=== PATIENT | male | born 1965 | race Two or more races ===

== ENCOUNTER 2019-04-16 08:10 | Inpatient (IN) | payer BC ==
[2019-04-16] MEDS ORDERED: ONDANSETRON HCL INJ/PF 4 MG/2 ML SDV IV ONE ×2 (08:58→10:31)
[2019-04-16] MEDS ORDERED: NORMAL SALINE 1000 ML 1,000 ML IV ONE ×2 (08:58→09:53)
[2019-04-16 09:07] LABS: ABSOLUTE BASOPHILS # (AUTO) 0.1 10^3/uL (0.0-0.2); ABSOLUTE LYMPHOCYTES (AUTO) 1.8 10^3/uL (0.5-4.7); ABSOLUTE MONOCYTES (AUTO) 0.6 10^3/uL (0.1-1.4); ABSOLUTE NEUT (AUTO) 11.3 10^3/uL (1.7-8.2); BASOPHILS % (AUTO) 0.4 % (0-2); EOSINOPHILS % (AUTO) 0.1 % (0-6); HEMATOCRIT 48.9 % (37.9-51.0); HEMOGLOBIN 16.1 g/dL (13.5-17.0); LYMPHOCYTES % (AUTO) 13.3 % (13-45); MEAN CORPUSCULAR HGB CONC 32.9 g/dL (32.0-36.0); MEAN CORPUSCULAR VOLUME 85 fl (80-97); MONOCYTES % (AUTO) 4.1 % (3-13); PLATELET COUNT 336 10^3/uL (150-450); RED BLOOD COUNT 5.77 10^6/uL (4.35-5.55); RED CELL DISTRIBUTION WIDTH 13.6 % (11.5-14.0); SEGMENTED NEUTROPHILS % (AUTO) 82.1 % (42-78); TOTAL CELLS COUNTED % (AUTO) 100 %; WHITE BLOOD COUNT 13.7 10^3/uL (4.0-10.5)
[2019-04-16 09:10] LABS: APPEARANCE,URINE CLEAR; BILIRUBIN,URINE NEGATIVE (NEGATIVE); COLOR,URINE COLORLESS; GLUCOSE, URINE >=500 mg/dL (NEGATIVE); KETONES,URINE TRACE mg/dL (NEGATIVE); LEUKOCYTE ESTERASE,URINE NEGATIVE (NEGATIVE); NITRITE,URINE NEGATIVE (NEGATIVE); PROTEIN,URINE NEGATIVE (NEGATIVE); URINE SPECIFIC GRAVITY 1.029; UROBILINOGEN,URINE NEGATIVE mg/dL (<2.0)
--- NOTE | 2019-04-16 09:17 | ER Document Report ---
ED General - General Chief Complaint: High Blood Sugar Stated Complaint: BLOOD SUGAR PROBLEM Time Seen by Provider: 04/16/19 08:42 Mode of Arrival: Ambulatory Information source: Patient Notes: Patient presents to the emergency department with reports that he believes he is a diabetic. Patient reports that he checked his glucose with his father's glucometer and it was over 600. Patient reports family history of diabetes. Reports for the past week he has had increased thirst with a dry mouth and increased urine frequency, feeling lightheaded weak and wobbly. Patient also reports he vomited twice this morning and had diarrhea 3 times Monday. Patient denies past medical history of diabetes reports he has not been to a physician in over 5 years. Denies chest pain but reports every now and then he will feel like he has to catch his breath. TRAVEL OUTSIDE OF THE [place] IN LAST 30 DAYS: No - HPI Onset: Last week Onset/Duration: Persistent Quality of pain: No pain - Related Data Allergies/Adverse Reactions: No Known Allergies Allergy (Verified 04/16/19 08:22) Past Medical History - General Information source: Patient - Social History Smoking Status: Former Smoker Cigarette use (# per day): No Frequency of alcohol use: None Drug Abuse: None Occupation: Restaurant Lives with: Family Family History: DM Patient has suicidal ideation: No Patient has homicidal ideation: No - Medical History Medical History: Negative Renal/ Medical History: Denies: Hx Peritoneal Dialysis Past Surgical History: Reports: Hx Abdominal Surgery Review of Systems - Review of Systems Notes: Review HPI for review of systems., All other systems negative Physical Exam - Vital signs Vitals: Temp Pulse Resp BP Pulse Ox 98.8 F 123 H 18 125/92 H 96 04/16/19 08:26 04/16/19 08:26 04/16/19 08:26 04/16/19 08:26 04/16/19 08:26 - Notes Notes: PHYSICAL EXAMINATION: GENERAL: Well-appearing and in no acute distress HEAD: Atraumatic, normocephalic. EYES: Pupils equal round and reactive to light, extraocular movements intact, sclera anicteric, conjunctiva are normal. ENT: nares patent, oropharynx clear without exudates. Moist mucous membranes. NECK: Normal range of motion, supple without lymphadenopathy LUNGS: CTAB and equal. No wheezes rales or rhonchi. HEART: Regular rate and rhythm without murmurs Sinus tachycardia at 125 noted on the CM ABDOMEN: Soft, no tenderness. No guarding, no rebound EXTREMITIES: Normal range of motion, no pitting edema. No cyanosis. NEUROLOGICAL: Cranial nerves grossly intact. Normal sensory/motor exams. PSYCH: Normal mood, normal affect. SKIN: Warm, Dry, normal turgor, no rashes or lesions noted Course - Re-evaluation Re-evalutation: 04/16/19 10:31 Serum glucose 836 potassium 5.2 anion gap 17 sodium 135.3. A1C 11.1. 2 liters of fluid ordered. Insulin bolus with insulin drip ordered. Dr. Brown contacted for admission. Patient updated on plan of care and agrees. - Vital Signs Vital signs: Temp Pulse Resp BP Pulse Ox 98.2 F 123 H 20 130/88 H 95 04/16/19 15:01 04/16/19 08:26 04/16/19 16:01 04/16/19 16:01 04/16/19 16:01 - Laboratory Result Diagrams: 04/16/19 08:55 04/16/19 08:55 Laboratory results interpreted by me: 04/16/19 04/16/19 04/16/19 06:08 08:23 08:55 WBC 13.7 H RBC 5.77 H Seg Neutrophils % 82.1 H Absolute Neutrophils 11.3 H Sodium Potassium Chloride BUN Glucose POC Glucose > 550 H* Hemoglobin A1c % Calcium Alkaline Phosphatase Urine Glucose (UA) >=500 H Urine Ketones TRACE H Urine Blood SMALL H 04/16/19 04/16/19 04/16/19 08:55 08:55 10:23 WBC RBC Seg Neutrophils % Absolute Neutrophils Sodium 135.3 L Potassium 5.2 H Chloride 95 L BUN 22 H Glucose 876 H* POC Glucose > 550 H* Hemoglobin A1c % 11.8 H Calcium 10.6 H Alkaline Phosphatase 144 H Urine Glucose (UA) Urine Ketones Urine Blood - Diagnostic Test Radiology reviewed: Image reviewed, Reports reviewed - EXAM DESCRIPTION: CHEST 2 VIEWS COMPLETED DATE/TIME: 04/16/2019 9:22 am REASON FOR STUDY: cough COMPARISON: None. EXAM PARAMETERS: NUMBER OF VIEWS: two views TECHNIQUE: Digital Frontal and Lateral radiographic views of the chest acquired. RADIATION DOSE: NA LIMITATIONS: none FINDINGS: LUNGS AND PLEURA: No opacities, masses or pneumothorax. No pleural effusion. MEDIASTINUM AND HILAR STRUCTURES: No masses or contour abnormalities. HEART AND VASCULAR STRUCTURES: Heart normal size. No evidence for failure. BONES: No acute findings. HARDWARE: None in the chest. OTHER: No other significant finding. IMPRESSION: 1. NO ACUTE RADIOGRAPHIC FINDING IN THE CHEST. Discharge - Discharge Clinical Impression: New onset type 2 diabetes mellitus Condition: Stable Disposition: ADMITTED INPATIENT Admitting Provider: Johnnie (Hospitalist) Unit Admitted: [facility]
[2019-04-16 09:25] LABS: ALANINE AMINOTRANSFERASE 61 U/L (21-72); ALBUMIN 4.6 g/dL (3.5-5.0); ALKALINE PHOSPHATASE 144 U/L (38-126); ANION GAP 17 (5-19); ASPARTATE AMINO TRANSFERASE 27 U/L (17-59); BILIRUBIN,DIRECT 0.4 mg/dL (0.0-0.4); BILIRUBIN,TOTAL 0.9 mg/dL (0.2-1.3); BLOOD UREA NITROGEN 22 mg/dL (7-20); CALCIUM 10.6 mg/dL (8.4-10.2); CARBON DIOXIDE 23 mmol/L (22-30); CHLORIDE 95 mmol/L (98-107); POTASSIUM 5.2 mmol/L (3.6-5.0); SODIUM 135.3 mmol/L (137-145); TOTAL PROTEIN 7.4 g/dL (6.3-8.2)
--- NOTE | 2019-04-16 09:30 | RADIOLOGY REPORT (SQ) ---
EXAM DESCRIPTION: CHEST 2 VIEWS COMPLETED DATE/TIME: 04/16/2019 9:22 am REASON FOR STUDY: cough COMPARISON: None. EXAM PARAMETERS: NUMBER OF VIEWS: two views TECHNIQUE: Digital Frontal and Lateral radiographic views of the chest acquired. RADIATION DOSE: NA LIMITATIONS: none FINDINGS: LUNGS AND PLEURA: No opacities, masses or pneumothorax. No pleural effusion. MEDIASTINUM AND HILAR STRUCTURES: No masses or contour abnormalities. HEART AND VASCULAR STRUCTURES: Heart normal size. No evidence for failure. BONES: No acute findings. HARDWARE: None in the chest. OTHER: No other significant finding. IMPRESSION: 1. NO ACUTE RADIOGRAPHIC FINDING IN THE CHEST. TECHNICAL DOCUMENTATION: JOB ID: [id number] [employer]- All Rights Reserved Reading location - IP/workstation name: [email or web address]
[2019-04-16 09:51] LABS: GLUCOSE 876 mg/dL (75-110)
[2019-04-16] MEDS ORDERED: INSULIN REG, HUMAN 100 UNIT/ML 3 ML VIAL (PYX) IV ONE ×3 (10:04→10:12)
[2019-04-16] MEDS ORDERED: NORMAL SALINE 1000 ML 1,000 ML IV PRN (10:49)
[2019-04-16] MEDS ORDERED: ACETAMINOPHEN 325 MG TABLET PO PRN (10:49)
[2019-04-16] MEDS ORDERED: DEXTROSE 50%-WATER 25 GM/50 ML DISP.SYRIN IV PRN ×6 (10:49→18:22)
[2019-04-16] MEDS ORDERED: ONDANSETRON HCL INJ/PF 4 MG/2 ML SDV IV PRN (10:49)
[2019-04-16] MEDS ORDERED: DEXTROSE 40% GEL 15 GM TUBE PO PRN ×6 (10:49→18:22)
[2019-04-16] MEDS ORDERED: GLUCAGON,HUMAN RECOMB 1 MG INJ SUBCUT PRN (10:49)
[2019-04-16] MEDS ORDERED: GLUCAGON,HUMAN RECOMB 1 MG INJ IM PRN ×2 (10:56→18:22)
[2019-04-16] MEDS ORDERED: NORMAL SALINE 100 ML with INSULIN REGULAR, HUMAN 100 UNIT IV PRN ×2 (10:56)
--- NOTE | 2019-04-16 11:08 | PDOC H&P ---
History of Present Illness Admission Date/PCP: 04/16/19 10:40 Patient complains of: Nausea associated with poor appetite and polyuria and polydipsia. History of Present Illness: IDALIA VALERA is a 53 year old male with a history of gastroparesis reflux disease, perforated peptic ulcer status post surgery in 2009 came to the emergency room with complaints of not feeling well for the last 7 to 10 days. As per the patient he is feeling terrible and thirsty all the time the symptoms are associated with nausea, poor appetite, sweating and drinking a lot of water and urinating almost every half an hour. Denies any fevers denies any cough cold denies any chest pains denies any lightheadedness and dizziness. The emergency room blood sugar was 876 he was given 10 units of regular insulin subcu and insulin drip was initiated. Repeat blood sugar is more than 550. Patient agreed to stay in the hospital. Past Medical History GI Medical History: Reports: Gastroesophageal Reflux Disease, Peptic Ulcer Disease Social History Information Source: Patient Lives with: Family Smoking Status: Former Smoker - Advance Directive Resuscitation Status: Full Code Family History Family History: DM Parental Family History Reviewed: Yes - Father mother and sister with hypertension and diabetes mellitus Children Family History Reviewed: Yes Sibling(s) Family History Reviewed.: Yes Medication/Allergy Allergies/Adverse Reactions: No Known Allergies Allergy (Verified 04/16/19 08:22) Review of Systems Constitutional: PRESENT: fatigue, weakness. ABSENT: fever(s), headache(s) Eyes: ABSENT: visual disturbances Ears: ABSENT: hearing changes Nose, Mouth, and Throat: ABSENT: sore throat Cardiovascular: ABSENT: chest pain, orthropnea, palpitations Respiratory: ABSENT: dyspnea, hemoptysis Gastrointestinal: PRESENT: nausea, other - Poor appetite Genitourinary: PRESENT: other - Urinating almost every half an hour for the last 1week, drinking gallons of water Musculoskeletal: PRESENT: muscle weakness Neurological: ABSENT: abnormal gait, abnormal speech, confusion, dizziness, focal weakness, syncope Psychiatric: ABSENT: anxiety, depression, homidical ideation, suicidal ideation Physical Exam Vital Signs: Temp Pulse Resp BP Pulse Ox 98.8 F 123 H 26 H 145/94 H 95 04/16/19 08:26 04/16/19 08:26 04/16/19 10:02 04/16/19 10:02 04/16/19 10:02 Intake & Output 04/15/19 04/16/19 04/17/19 06:59 06:59 06:59 Intake Total 1999 Balance 1999 Weight 95.9 kg General appearance: PRESENT: no acute distress, obese Eye exam: PRESENT: PERRLA Ear exam: PRESENT: normal external ear exam Mouth exam: PRESENT: moist, tongue midline Neck exam: ABSENT: carotid bruit, JVD, lymphadenopathy, thyromegaly Respiratory exam: PRESENT: clear to auscultation rosa. ABSENT: rales, rhonchi, wheezes Cardiovascular exam: PRESENT: tachycardia GI/Abdominal exam: PRESENT: normal bowel sounds, soft. ABSENT: distended, guarding, mass, organolmegaly, rebound, tenderness Rectal exam: PRESENT: deferred Extremities exam: PRESENT: full ROM. ABSENT: calf tenderness, clubbing, pedal edema Neurological exam: PRESENT: alert, awake, oriented to person, oriented to place, oriented to time, oriented to situation, CN II-XII grossly intact. ABSENT: motor sensory deficit Psychiatric exam: PRESENT: appropriate affect, normal mood. ABSENT: homicidal ideation, suicidal ideation Results Laboratory Results: 04/16/19 08:55 04/16/19 08:55 04/16/19 04/16/19 04/16/19 08:23 08:55 08:55 WBC 13.7 H RBC 5.77 H Hgb 16.1 Hct 48.9 MCV 85 MCH 28.0 MCHC 32.9 RDW 13.6 Plt Count 336 Seg Neutrophils % 82.1 H Lymphocytes % 13.3 Monocytes % 4.1 Eosinophils % 0.1 Basophils % 0.4 Absolute Neutrophils 11.3 H Absolute Lymphocytes 1.8 Absolute Monocytes 0.6 Absolute Eosinophils 0.0 Absolute Basophils 0.1 Sodium 135.3 L Potassium 5.2 H Chloride 95 L Carbon Dioxide 23 Anion Gap 17 BUN 22 H Creatinine 0.86 Est GFR ( Amer) > 60 Est GFR (Non-Af Amer) > 60 Glucose 876 H* Calcium 10.6 H Total Bilirubin 0.9 AST 27 ALT 61 Alkaline Phosphatase 144 H Total Protein 7.4 Albumin 4.6 Urine Color COLORLESS Urine Appearance CLEAR Urine pH 6.0 Ur Specific [place] 1.029 Urine Protein NEGATIVE Urine Glucose (UA) >=500 H Urine Ketones TRACE H Urine Blood SMALL H Urine Nitrite NEGATIVE Ur Leukocyte Esterase NEGATIVE Urine WBC (Auto) 1 Urine RBC (Auto) 3 Impressions: Chest X-Ray 04/16/19 09:12 IMPRESSION: 1. NO ACUTE RADIOGRAPHIC FINDING IN THE CHEST. Assessment and Plan - Diagnosis (1) New onset type 2 diabetes mellitus Is this a current diagnosis for this admission?: Yes Plan: 04/16/2019-patient is going to be admitted to [facility]. Plan is to continue the insulin drip. To monitor the blood sugars as per the protocol. He is going to be n.p.o. GI prophylaxis DVT prophylaxis initiated. Dietary consult was requested. Hemoglobin A1c lipid panel was requested for the morning. Started on IV fluids normal saline at 150 cc/h. (2) Obesity (BMI 30.0-34.9) Is this a current diagnosis for this admission?: No Plan: 04/16/2019-patient's BMI is more than 30 diet exercise weight loss issues discussed with the patient. Dietary consult was requested. (3) Hyperkalemia Is this a current diagnosis for this admission?: Yes Plan: 04/16/2019-serum potassium is 5.2 at the time of admission started on IV fluids and insulin drip hopefully it will bring this potassium down. Hyperkalemia most likely secondary to uncontrolled diabetes mellitus. (4) Hyponatremia Is this a current diagnosis for this admission?: Yes Plan: 04/16/2019-patient serum sodium is 135.3 low normal. Hyponatremia most likely secondary to nausea and uncontrolled diabetes mellitus. He is presently in normal saline at 150 cc/h plan is to repeat the labs tomorrow. (5) HTN (hypertension) Is this a current diagnosis for this admission?: Yes Plan: 04/15/2019-patient blood pressure today is 145/94. To start on IV hydralazine 10 mg every 6 hours as needed for systolic blood pressure more than 150. Once the patient is stable we will start him on JUAN F inhibitors. - Time Time Spent with patient: 25-34 minutes Medications reviewed and adjusted accordingly: Yes Anticipated discharge: Home
[2019-04-16] MEDS ORDERED: HYDRALAZINE HCL INJ/PF 20 MG/1 ML SDV IV PRN (11:09)
[2019-04-16 11:27] LABS: CREATINE KINASE MB 1.33 ng/mL (<4.55)
[2019-04-16 11:28] LABS: TROPONIN I < 0.012 ng/mL
[2019-04-16 15:58] LABS: CREATINE KINASE MB 0.93 ng/mL (<4.55)
[2019-04-16 16:01] LABS: TROPONIN I < 0.012 ng/mL
--- NOTE | 2019-04-16 18:25 | EKG REPORT ---
SEVERITY:- BORDERLINE ECG - SINUS RHYTHM NONSPECIFIC INFERIOR ST CHANGES : Confirmed by: Augustine Rogel MD 16-Apr-2019 18:25:30
[2019-04-16] MEDS: NORMAL SALINE 1000 ML 1,000 ML IV PRN (18:44)
[2019-04-16] MEDS: INSULIN REG, HUMAN 100 UNIT/ML 3 ML VIAL (PYX) SUBCUT SCH (21:25)
[2019-04-16] MEDS: FAMOTIDINE INJ/PF 20 MG/2 ML SDV IV SCH (21:27)
[2019-04-16] MEDS ORDERED: ATORVASTATIN CALCIUM 10 MG TABLET PO SCH (22:00)
[2019-04-16] MEDS ORDERED: INSULIN GLARGINE,HUM.REC.ANLOG 1,000 UNIT/10 ML VIAL SUBCUT SCH (22:00)
[2019-04-16 23:03] LABS: CREATINE KINASE MB 0.79 ng/mL (<4.55)
[2019-04-16 23:07] LABS: TROPONIN I < 0.012 ng/mL
[2019-04-17 05:12] LABS: ABSOLUTE BASOPHILS # (AUTO) 0.1 10^3/uL (0.0-0.2); ABSOLUTE EOSINOPHILS # (AUTO) 0.2 10^3/uL (0.0-0.6); ABSOLUTE LYMPHOCYTES (AUTO) 3.7 10^3/uL (0.5-4.7); ABSOLUTE MONOCYTES (AUTO) 0.9 10^3/uL (0.1-1.4); ABSOLUTE NEUT (AUTO) 9.6 10^3/uL (1.7-8.2); BASOPHILS % (AUTO) 0.4 % (0-2); EOSINOPHILS % (AUTO) 1.5 % (0-6); HEMATOCRIT 40.2 % (37.9-51.0); LYMPHOCYTES % (AUTO) 25.7 % (13-45); MEAN CORPUSCULAR HGB CONC 34.1 g/dL (32.0-36.0); MEAN CORPUSCULAR VOLUME 82 fl (80-97); PLATELET COUNT 245 10^3/uL (150-450); RED BLOOD COUNT 4.91 10^6/uL (4.35-5.55); RED CELL DISTRIBUTION WIDTH 13.1 % (11.5-14.0); SEGMENTED NEUTROPHILS % (AUTO) 66.4 % (42-78); TOTAL CELLS COUNTED % (AUTO) 100 %; WHITE BLOOD COUNT 14.4 10^3/uL (4.0-10.5)
[2019-04-17 05:24] LABS: HEMOGLOBIN 13.7 g/dL (13.5-17.0)
[2019-04-17 05:28] LABS: ALANINE AMINOTRANSFERASE 47 U/L (21-72); ALBUMIN 3.4 g/dL (3.5-5.0); ALKALINE PHOSPHATASE 92 U/L (38-126); ANION GAP 7 (5-19); ASPARTATE AMINO TRANSFERASE 29 U/L (17-59); BILIRUBIN,DIRECT 0.2 mg/dL (0.0-0.4); BILIRUBIN,TOTAL 0.7 mg/dL (0.2-1.3); BLOOD UREA NITROGEN 19 mg/dL (7-20); CARBON DIOXIDE 26 mmol/L (22-30); CHLORIDE 107 mmol/L (98-107); CHOLESTEROL 157.39 mg/dL (0-200); GLUCOSE 312 mg/dL (75-110); POTASSIUM 4.7 mmol/L (3.6-5.0); SODIUM 139.6 mmol/L (137-145); TOTAL PROTEIN 5.8 g/dL (6.3-8.2); TRIGLYCERIDES 449 mg/dL (<150)
[2019-04-17 05:39] LABS: DIRECT LDL 44 mg/dL (<100)
[2019-04-17] MEDS ORDERED: LORATADINE 10 MG TABLET PO PRN (07:41)
[2019-04-17] MEDS: NORMAL SALINE 1000 ML 1,000 ML IV PRN (08:00)
[2019-04-17] MEDS: INSULIN REG, HUMAN 100 UNIT/ML 3 ML VIAL (PYX) SUBCUT SCH ×2 (08:01→11:30)
[2019-04-17] MEDS: FAMOTIDINE INJ/PF 20 MG/2 ML SDV IV SCH (09:38)
[2019-04-17] MEDS ORDERED: LISINOPRIL 10 MG TABLET PO SCH ×2 (10:00)
[2019-04-17] MEDS ORDERED: INSULIN GLARGINE,HUM.REC.ANLOG 1,000 UNIT/10 ML VIAL SUBCUT SCH (10:00)
[2019-04-17] MEDS ORDERED: ENOXAPARIN SODIUM INJ 40 MG/0.4 ML DISP.SYRIN SUBCUT SCH (10:00)
--- NOTE | 2019-04-17 14:12 | PDOC DISCHARGE SUMMARY ---
General - Admit/Disc Date/PCP Admission Date/Primary Care Provider: 04/16/19 10:40 Discharge Date: 04/17/19 - Discharge Diagnosis (1) New onset type 2 diabetes mellitus Is this a current diagnosis for this admission?: Yes Summary: 04/16/2019-patient is going to be admitted to [facility]. Plan is to continue the insulin drip. To monitor the blood sugars as per the protocol. He is going to be n.p.o. GI prophylaxis DVT prophylaxis initiated. Dietary consult was requested. Hemoglobin A1c lipid panel was requested for the morning. Started on IV fluids normal saline at 150 cc/h. 04/[id number]-[id number]-old male admitted for newly diagnosed type 2 diabetes mellitus came in with high blood sugars more than 870 and he was placed initially on insulin drip presently on Lantus 30 units twice a day and insulin sliding scale latest blood sugar is around 350 and hemoglobin A1c is 11.3 patient is expressing desire to go home today. I gave the prescription for Lantus 30 units twice a day, diabetic supplies including glucometer machine. I strongly advised him to find a primary care physician and follow-up with him in 3 to 5 days. Patient was agreed and verbalized response. (2) Obesity (BMI 30.0-34.9) Is this a current diagnosis for this admission?: No (3) Hyperkalemia Is this a current diagnosis for this admission?: Yes Summary: 04/16/2019-serum potassium is 5.2 at the time of admission started on IV fluids and insulin drip hopefully it will bring this potassium down. Hyperkalemia most likely secondary to uncontrolled diabetes mellitus. 04/17/2019-serum potassium is 4.7 and came in with serum potassium 5.2 hyperkalemia is resolved. (4) Hyponatremia Is this a current diagnosis for this admission?: Yes Summary: 04/16/2019-patient serum sodium is 135.3 low normal. Hyponatremia most likely secondary to nausea and uncontrolled diabetes mellitus. He is presently in normal saline at 150 cc/h plan is to repeat the labs tomorrow. 04/17/2019-patient came in serum sodium of 135 and it was improved to 139 today. Hyponatremia is resolved. He received IV fluids during the hospital stay. (5) HTN (hypertension) Is this a current diagnosis for this admission?: Yes Summary: 04/15/2019-patient blood pressure today is 145/94. To start on IV hydralazine 10 mg every 6 hours as needed for systolic blood pressure more than 150. Once the patient is stable we will start him on JUAN F inhibitors. 04/17/2019-patient blood pressure this morning is 141/97 prescription for lisinopril 20 mg p.o. daily was given and patient was advised to be compliant with medications. pt is expressing desire to go home today and is going home. - Additional Information Resuscitation Status: Full Code Discharge Diet: Diabetic Discharge Activity: Activity As Tolerated Prescriptions: Atorvastatin Calcium [Lipitor 10 mg Tablet] 10 mg PO QHS #30 tablet Insulin Glargine,Hum.rec.anlog [Lantus Insulin 100 Unit/1 ml 10 ml] 30 unit SUBCUT Q12 15 Days #3 vial Lisinopril [Prinivil 10 mg Tablet] 20 mg PO DAILY #30 tablet Home Medications: Loratadine [Claritin 10 mg Tablet] 10 mg PO DAILYP PRN 04/16/19 Atorvastatin Calcium [Lipitor 10 mg Tablet] 10 mg PO QHS #30 tablet 04/17/19 Insulin Glargine,Hum.rec.anlog [Lantus Insulin 100 Unit/1 ml 10 ml] 30 unit SUBCUT Q12 15 Days #3 vial 04/17/19 Lisinopril [Prinivil 10 mg Tablet] 20 mg PO DAILY #30 tablet 04/17/19 History of Present Illness History of Present Illness: IDALIA VALERA is a 53 year old male with a history of gastroparesis reflux disease, perforated peptic ulcer status post surgery in 2009 came to the e mergency room with complaints of not feeling well for the last 7 to 10 days. As per the patient he is feeling terrible and thirsty all the time the symptoms are associated with nausea, poor appetite, sweating and drinking a lot of water and urinating almost every half an hour. Denies any fevers denies any cough cold denies any chest pains denies any lightheadedness and dizziness. The emergency room blood sugar was 876 he was given 10 units of regular insulin subcu and insulin drip was initiated. Repeat blood sugar is more than 550. Patient agreed to stay in the hospital. Hospital Course Hospital Course: [id number]-nbej-old male came to the emergency room with complaints of polyuria polydipsia and blood sugars are found to be around 860 insulin drip was started in the emergency room later on blood sugars dropped to 145 insulin drip was discontinued started on Lantus 25 units twice daily and insulin sliding scale before meals and at bedtime blood sugars this morning around 350 Lantus was increased to 30 twice daily and plan is to continue to closely monitor the blood sugars today but the patient is expressed desire to go home and he said can start checking the blood sugars at home and take the appropriate measures. Physical Exam Vital Signs: Temp Pulse Resp BP Pulse Ox 99.0 F 83 16 134/87 H 96 04/17/19 08:26 04/17/19 08:26 04/17/19 08:26 04/17/19 08:26 04/17/19 08:26 Intake & Output 04/16/19 04/17/19 04/18/19 06:59 06:59 06:59 Intake Total 5452 995 Output Total 650 Balance 4802 995 Weight 98.6 kg General appearance: PRESENT: no acute distress, obese Head exam: PRESENT: atraumatic Eye exam: PRESENT: PERRLA Mouth exam: PRESENT: moist, tongue midline Teeth exam: PRESENT: poor dentation Neck exam: ABSENT: carotid bruit, JVD, lymphadenopathy, thyromegaly Respiratory exam: PRESENT: clear to auscultation rosa. ABSENT: rales, rhonchi, wheezes Cardiovascular exam: PRESENT: RRR. ABSENT: diastolic murmur, rubs, systolic murmur GI/Abdominal exam: PRESENT: normal bowel sounds, soft. ABSENT: distended, guarding, mass, organolmegaly, rebound, tenderness Rectal exam: PRESENT: deferred Neurological exam: PRESENT: alert, awake, oriented to person, oriented to place, oriented to time, oriented to situation, CN II-XII grossly intact. ABSENT: motor sensory deficit Psychiatric exam: PRESENT: appropriate affect, normal mood. ABSENT: homicidal ideation, suicidal ideation Results Laboratory Results: 04/17/19 04:40 04/17/19 04:40 04/17/19 04/17/19 04/17/19 04:40 04:40 04:40 WBC 14.4 H RBC 4.91 Hgb 13.7 D Hct 40.2 MCV 82 MCH 28.0 MCHC 34.1 RDW 13.1 Plt Count 245 Seg Neutrophils % 66.4 Lymphocytes % 25.7 Monocytes % 6.0 Eosinophils % 1.5 Basophils % 0.4 Absolute Neutrophils 9.6 H Absolute Lymphocytes 3.7 Absolute Monocytes 0.9 Absolute Eosinophils 0.2 Absolute Basophils 0.1 Sodium 139.6 Potassium 4.7 Chloride 107 Carbon Dioxide 26 Anion Gap 7 BUN 19 Creatinine 0.75 Est GFR ( Amer) > 60 Est GFR (Non-Af Amer) > 60 Glucose 312 H Calcium 9.0 Magnesium 2.0 Total Bilirubin 0.7 AST 29 ALT 47 Alkaline Phosphatase 92 Total Protein 5.8 L Albumin 3.4 L Triglycerides 449 H Cholesterol 157.39 LDL Cholesterol Direct 44 VLDL Cholesterol UNABLE TO CALCULATE HDL Cholesterol 26 L TSH 0.53 04/16/19 04/16/19 04/16/19 08:55 08:55 15:08 Creatine Kinase 154 125 CK-MB (CK-2) 1.33 Troponin I < 0.012 04/16/19 04/16/19 04/16/19 15:08 22:05 22:05 Creatine Kinase 127 CK-MB (CK-2) 0.93 0.79 Troponin I < 0.012 < 0.012 Impressions: Chest X-Ray 04/16/19 09:12 IMPRESSION: 1. NO ACUTE RADIOGRAPHIC FINDING IN THE CHEST. Qualifiers - * PATIENT BEING DISCHARGED WITH ANY OF THE FOLLOWING DIAGNOSIS: No VTE patient discharged on overlapping Therapy?: No Acute Heart Failure - Is this a Heart Failure Patient?: No Plan Discharge Plan: Patient is going home today. Time Spent: Greater than 30 Minutes
[2019-04-17 14:38] VITALS: BP 143/91
== END 2019-04-17 18:20 | disposition home or self-care (01) | DRG 638 ==
LOC: ER 08:10 → EH 10:40 → 3S 22:23
PROVIDERS: ADMIT Internal Medicine; ATTEND Internal Medicine
DX: E11.65 Type 2 diabetes mellitus with hyperglycemia (principal); E87.1 Hypo-osmolality and hyponatremia; E87.5 Hyperkalemia; I10 Essential (primary) hypertension; K21.9 Gastro-esophageal reflux disease without esophagitis; E66.9 Obesity, unspecified
CPT/HCPCS: 36415; 71046; 80053; 80061; 81001; 82550; 82553; 82962; 83036; 83735; 84443; 84484; 85025; 93005; 93010; 96361; 96374; 96376; 99284; J1650; J1815; J2405; J7030; S0028